=== PATIENT | female | born 1980 | race Caucasian/White ===

== ENCOUNTER → 2016-06-02 | Outpatient (CLI) | payer MEDICARE, MEDICAID ==
[~2016-06-02] MED LIST: ANAPROX DS550 MG PO; AYGESTIN5 MG PO; COMPAZINE10 MG PO; EC NAPROSYN500 MG PO
== END | disposition home or self-care (01) ==
LOC: CARD 10:30
DX: I34.0 Nonrheumatic mitral (valve) insufficiency (principal); I51.9 Heart disease, unspecified; I42.9 Cardiomyopathy, unspecified; I07.1 Rheumatic tricuspid insufficiency

== ENCOUNTER 2017-10-22 21:19 | Emergency (ER) | payer MEDICARE, MEDICAID ==
[~2017-10-22] VITALS: Ht 157.4 cm; Wt 47.6 kg
[2017-10-22] MEDS ORDERED: NAPROSYN500 MG PO (23:29)
== END 2017-10-22 23:32 | disposition home or self-care (01) ==
LOC: ED 21:19
DX: S29.011A Strain of muscle and tendon of front wall of thorax, initial encounter (principal); Z79.899 Other long term (current) drug therapy; W06.XXXA Fall from bed, initial encounter; Y93.89 Activity, other specified; Y92.89 Other specified places as the place of occurrence of the external cause; Y99.8 Other external cause status

== ENCOUNTER 2018-04-14 00:42 | Emergency (ER) | payer MEDICARE, MEDICAID ==
[~2018-04-14] VITALS: Ht 162.5 cm; Wt 47.6 kg
[~2018-04-14 00:42] MED LIST changes: +NAPROSYN500 MG PO
== END 2018-04-14 01:57 | disposition home or self-care (01) ==
LOC: ED 00:42
DX: G40.909 Epilepsy, unspecified, not intractable, without status epilepticus (principal); R07.81 Pleurodynia; Z79.899 Other long term (current) drug therapy

== ENCOUNTER → 2019-05-26 | Outpatient (CLI) | payer MEDICARE, MEDICAID | END | disposition home or self-care (01) | LOC: CARD 09:21 | DX: I08.1 Rheumatic disorders of both mitral and tricuspid valves (principal); I42.9 Cardiomyopathy, unspecified; Z79.899 Other long term (current) drug therapy ==

== ENCOUNTER 2020-03-15 18:07 | Emergency (ER) | payer MEDICARE, MEDICAID ==
[~2020-03-15] VITALS: Ht 162.5 cm; Wt 49.9 kg
[2020-03-15] MEDS ORDERED: IBUPROFEN600 MG PO (21:26)
== END 2020-03-15 21:36 | disposition home or self-care (01) ==
LOC: ED 18:07
DX: G89.29 Other chronic pain (principal); M79.671 Pain in right foot

== ENCOUNTER 2022-06-19 15:21 | Emergency (ER) | payer MEDICARE, MEDICAID ==
[~2022-06-19] VITALS: Ht 154.9 cm; Wt 48.1 kg
[~2022-06-19 15:21] MED LIST changes: +IBUPROFEN600 MG PO
[2022-06-19] MEDS ORDERED: Ondansetron4 MG PO (15:49)
[2022-06-19 16:01] LABS: HEMATOCRIT 35.5 % (37.0-47.0); MEAN CORPUSCULAR HGB 29.8 pg (27.0-31.0); MEAN CORPUSCULAR HGB CONC 32.4 g/dl (33.0-37.0); MEAN PLATELET VOLUME 8.7 fl (9.6-12.3); PLATELET COUNT AUTOMATED 156 10*3/uL (130-400); RED BLOOD COUNT 3.86 10*6/uL (4.10-5.10); RED CELL DISTRI WIDTH 12.7 % (0-14.5); WHITE BLOOD COUNT 5.2 10*3/uL (4.8-10.8)
[2022-06-19 16:17] LABS: MANUAL DIFF REFLEX YES
[2022-06-19 16:18] LABS: ALKALINE PHOSPHATASE 80 U/L (46-116); BUN 19 mg/dl (9-23); CHLORIDE 108 mmol/L (98-107); LIPASE 54 U/L (12-53); POTASSIUM 3.5 mmol/L (3.4-5.1); SGPT/ALT 32 U/L (10-49); TOTAL PROTEIN 6.1 gm/dL (6.0-8.0)
[2022-06-19 16:34] LABS: BURR CELLS FEW; OVALOCYTES FEW; PLATELET SUFFICIENCY NORMAL (NORMAL); TOTAL CELLS COUNTED 100 #CELLS
== END 2022-06-19 17:34 | disposition home or self-care (01) ==
LOC: ED 15:21
PROVIDERS: Emergency Medicine
DX: U07.1 COVID-19 (principal); R11.2 Nausea with vomiting, unspecified

== ENCOUNTER 2022-06-20 16:12 | Emergency (ER) | payer MEDICARE, MEDICAID ==
[~2022-06-20] VITALS: Ht 154.9 cm; Wt 59.0 kg
[~2022-06-20 16:12] MED LIST changes: +Ondansetron4 MG PO
[2022-06-20 17:09] LABS: BASO % 0.2 % (0.0-1.0); EOS % 0.8 % (1.0-4.0); HEMATOCRIT 37.8 % (37.0-47.0); LYMPH # 0.8 10*3/uL (1.3-4.4); LYMPH % 16.5 % (27.0-41.0); MEAN CELL VOLUME 91.1 fl (81.0-99.0); MEAN CORPUSCULAR HGB 30.1 pg (27.0-31.0); MEAN CORPUSCULAR HGB CONC 33.1 g/dl (33.0-37.0); MEAN PLATELET VOLUME 8.4 fl (9.6-12.3); MONO # 0.8 10*3/uL (0.1-1.0); MONO % 15.7 % (3.0-9.0); NEUT # 3.3 10*3/uL (2.3-7.9); NEUT % 66.2 % (47.0-73.0); PLATELET COUNT AUTOMATED 146 10*3/uL (130-400); RED BLOOD COUNT 4.15 10*6/uL (4.10-5.10); RED CELL DISTRI WIDTH 12.6 % (0-14.5)
[2022-06-20 17:24] LABS: POTASSIUM 3.5 mmol/L (3.4-5.1); TOTAL PROTEIN 6.1 gm/dL (6.0-8.0)
== END 2022-06-20 23:05 | disposition home or self-care (01) ==
LOC: ED 16:12
PROVIDERS: Physician Assistant
DX: R19.7 Diarrhea, unspecified (principal); R10.9 Unspecified abdominal pain; R11.2 Nausea with vomiting, unspecified

== ENCOUNTER 2024-11-22 11:33 | Inpatient (IN) | payer OTHER, MEDICAID ==
[~2024-11-22] VITALS: Ht 152.4 cm; Wt 45.5 kg
[~2024-11-22 11:33] MED LIST changes: +ALDACTONE25 MG PO; +APRESOLINE10 MG PO; +APTIOM400 MG PO; +APTIOM800 MG PO; +CITALOPRAM10 MG PO; +CLOBAZAM10 MG PO; +FEROSUL325 M1 PO; +GEMTESA75 MG PO; +GOOD NEIGHBOR L10 MG PO; +ISORDIL10 M1 PO; +JARDIANCE10 MG PO; +LEVETIRACETAM1000 M1 PO; +METOPROLOL SUCC25 M2 PO; +MONTELUKAST SOD10 MG PO; +MULTIVITAMIN1 EACH PO; +NATURE'S BLEND F1 MG PO; +PANTOPRAZOLE SO20 MG PO; +PROZAC20 MG PO; +RISPERDAL2 M1 PO; +VITAMIN D350 MC2 PO; +ZONISAMIDE100 MG PO
[2024-11-22 11:43] VITALS: BP 158/77
[2024-11-22] MEDS ORDERED: Promethazine Hydrochloride 25 MG/ML VIAL IV ONE (12:05)
[2024-11-22] MEDS ORDERED: SODIUM CHLORIDE 0.9% 1,000 ML IV ONE ×2 (12:05→18:00)
[2024-11-22] MEDS ORDERED: IOHEXOL 300 MG/ML 100 ML VIAL IV ONE (12:05)
[2024-11-22 12:28] LABS: BASO # 0.0 10*3/uL (0.0-0.1); BASO % 0.2 % (0.0-1.0); EOS # 0.0 10*3/uL (0.0-0.4); EOS % 0.0 % (1.0-4.0); MEAN CELL VOLUME 98.5 fl (81.0-99.0); MEAN CORPUSCULAR HGB 30.0 pg (27.0-31.0); MEAN PLATELET VOLUME 8.6 fl (9.6-12.3); MONO # 0.7 10*3/uL (0.1-1.0); MONO % 6.3 % (3.0-9.0); NEUT # 8.7 10*3/uL (2.3-7.9); NEUT % 83.4 % (47.0-73.0); NUCLEATED RED BLOOD CELL 0.0 % (0.0-0.0); NUCLEATED RED BLOOD CELL 0.0 10*3/uL (0.0-0.0); PLATELET COUNT AUTOMATED 167 10*3/uL (130-400); RED CELL DISTRI WIDTH 12.2 % (0-14.5)
[2024-11-22 12:31] LABS: BILIRUBIN Negative (Negative); BLOOD 3+ (Negative); CLARITY Clear (Clear); COLOR Red (Yellow); KETONE Negative (Negative); LEUKO ESTERASE Negative (Negative); NITRITE Negative (Negative); PH 7.5 (4.5-8.0); SPECIFIC GRAVITY 1.010 (1.001-1.030); UROBILINOGEN 0.2 E.U./dl (0.0-1.0)
[2024-11-22 12:40] LABS: BACTERIA 1+; RBC TNTC rbc/hpf (0-2)
[2024-11-22 12:52] LABS: BUN 40.0 mg/dl (9-23); SGPT/ALT 168.0 U/L (5-49)
[2024-11-22 16:04] VITALS: BP 140/94
[2024-11-22 17:39] LABS: URINE AMPHETAMINES Negative (1000ng/ml); URINE BARBITURATES Negative (200ng/ml); URINE BENZODIAZEPINES Positive (200ng/ml); URINE CANNABINOIDS (THC) Negative (50ng/ml); URINE COCAINE Negative (300ng/ml); URINE METHADONE Negative (300ng/ml); URINE OPIATES Negative (300ng/ml); URINE PHENCYCLIDINE Negative (25ng/ml)
[2024-11-22 17:52] VITALS: BP 166/97
[2024-11-22] MEDS ORDERED: SINCALIDE 5 MCG VIAL IV SCH (18:10)
[2024-11-22] MEDS ORDERED: Technetium Tc 99M Mebrofenin 1 KIT KIT IV SCH (18:10)
[2024-11-22] MEDS ORDERED: HYDROmorphONE Hydrochloride 0.5 MG/0.5 ML SYRINGE IV PRN (18:45)
[2024-11-22 20:00] VITALS: BP 134/87
[2024-11-22] MEDS ORDERED: Piperacillin Sodium/Tazobact 2.25 GM in SODIUM CHLORIDE 0.9% 50 ML IV SCH (20:00)
[2024-11-23] VITALS: BP 100/55
[2024-11-23 06:02] LABS: BUN 43.0 mg/dl (9-23); SGPT/ALT 123.0 U/L (5-49)
[2024-11-23 06:27] LABS: BASO # 0.0 10*3/uL (0.0-0.1); BASO % 0.2 % (0.0-1.0); EOS # 0.1 10*3/uL (0.0-0.4); EOS % 1.5 % (1.0-4.0); MEAN CELL VOLUME 98.2 fl (81.0-99.0); MEAN CORPUSCULAR HGB 30.6 pg (27.0-31.0); MEAN PLATELET VOLUME 9.4 fl (9.6-12.3); MONO # 0.6 10*3/uL (0.1-1.0); MONO % 7.8 % (3.0-9.0); NEUT # 5.8 10*3/uL (2.3-7.9); NEUT % 70.9 % (47.0-73.0); NUCLEATED RED BLOOD CELL 0.0 % (0.0-0.0); NUCLEATED RED BLOOD CELL 0.0 10*3/uL (0.0-0.0); PLATELET COUNT AUTOMATED 120 10*3/uL (130-400); RED CELL DISTRI WIDTH 12.7 % (0-14.5)
[2024-11-23 07:49] VITALS: BP 123/80
[2024-11-23] MEDS ORDERED: SODIUM CHLORIDE 0.9% 1,000 ML IV SCH (08:10)
[2024-11-23] MEDS ORDERED: CLOBAZAM 5 MG PO SCH (10:00)
[2024-11-23] MEDS ORDERED: Cholecalciferol 2,000 UNIT TABLET (50 MCG) PO SCH (10:00)
[2024-11-23] MEDS ORDERED: FOLIC ACID 1 MG TAB PO SCH (10:00)
[2024-11-23] MEDS ORDERED: LORATADINE 10 MG TAB PO SCH (10:00)
[2024-11-23] MEDS ORDERED: ISOSORBIDE DINITRATE 10 MG TAB PO SCH ×2 (10:00→22:00)
[2024-11-23] MEDS ORDERED: MULTIVITAMIN 1 TAB TAB PO SCH (10:00)
[2024-11-23] MEDS ORDERED: METOPROLOL SUCCINATE XR 25 MG TAB PO SCH (10:00)
[2024-11-23] MEDS ORDERED: FERROUS SULFATE 325 MG TAB PO SCH (10:00)
[2024-11-23] MEDS ORDERED: CITALOPRAM 20 MG TAB PO SCH (10:00)
[2024-11-23] MEDS ORDERED: Pantoprazole Sodium 20 MG TAB PO SCH (10:00)
[2024-11-23 10:30] VITALS: BP 154/85
[2024-11-23 12:13] LABS: BUN 46.0 mg/dl (9-23); CPK 209.0 U/L (34-171)
[2024-11-23] MEDS ORDERED: SODIUM CHLORIDE 0.45% 1,000 ML IV ONE (12:35)
[2024-11-23 15:58] VITALS: BP 152/69
[2024-11-23] MEDS ORDERED: HYDROmorphONE Hydrochloride 0.5 MG/0.5 ML SYRINGE IV PRN (16:45)
[2024-11-23] MEDS ORDERED: diphenhydrAMINE hydrochloride 25 MG CAP PO ONE (17:30)
[2024-11-23 20:00] VITALS: BP 110/71
[2024-11-23] MEDS ORDERED: MED. FROM HOME 1 EACH EA PO SCH ×5 (22:00)
[2024-11-23] MEDS ORDERED: [UNRECOGNIZED DRUG - OTHER] PO SCH (22:00)
[2024-11-23] MEDS ORDERED: ZONISAMIDE PO SCH (22:00)
[2024-11-24] VITALS: BP 117/61
[2024-11-24 05:53] LABS: BUN 45.0 mg/dl (9-23); SGPT/ALT 85.0 U/L (5-49)
[2024-11-24 06:07] LABS: BASO # 0.0 10*3/uL (0.0-0.1); BASO % 0.6 % (0.0-1.0); EOS # 0.3 10*3/uL (0.0-0.4); EOS % 4.8 % (1.0-4.0); MEAN CELL VOLUME 98.5 fl (81.0-99.0); MEAN CORPUSCULAR HGB 30.0 pg (27.0-31.0); MEAN PLATELET VOLUME 9.5 fl (9.6-12.3); MONO # 0.5 10*3/uL (0.1-1.0); MONO % 7.6 % (3.0-9.0); NEUT # 3.7 10*3/uL (2.3-7.9); NEUT % 58.4 % (47.0-73.0); NUCLEATED RED BLOOD CELL 0.0 % (0.0-0.0); NUCLEATED RED BLOOD CELL 0.0 10*3/uL (0.0-0.0); RED CELL DISTRI WIDTH 12.4 % (0-14.5)
[2024-11-24] MEDS ORDERED: SINCALIDE 0.9 MCG in SODIUM CHLORIDE 0.9% 50 ML IV STA (06:58)
[2024-11-24 07:10] LABS: PLATELET COUNT AUTOMATED 82 10*3/uL (130-400)
[2024-11-24] MEDS ORDERED: SINCALIDE 5 MCG VIAL IV SCH (07:20)
[2024-11-24] MEDS ORDERED: Technetium Tc 99M Mebrofenin 1 KIT KIT IV SCH (07:20)
[2024-11-24 08:00] VITALS: BP 137/54
[2024-11-24 12:00] VITALS: BP 134/56
== END 2024-11-24 16:51 | disposition home or self-care (01) | DRG 444 ==
LOC: ED 11:33 → EDHOLD 16:43 → 4E 16:43
PROVIDERS: Nurse Practitioner Family; ADMIT Student in an Organized Health Care Education/Training Program; ATTEND Student in an Organized Health Care Education/Training Program
DX: K81.0 Acute cholecystitis (principal); N17.0 Acute kidney failure with tubular necrosis; G40.812 Lennox-Gastaut syndrome, not intractable, without status epilepticus; D64.9 Anemia, unspecified; I12.9 Hypertensive chronic kidney disease with stage 1 through stage 4 chronic kidney disease, or unspecified chronic kidney disease; N18.9 Chronic kidney disease, unspecified; K21.9 Gastro-esophageal reflux disease without esophagitis; Z79.899 Other long term (current) drug therapy

== ENCOUNTER → 2025-02-04 | Outpatient (CLI) | payer OTHER, MEDICAID | END | disposition home or self-care (01) | LOC: RAD 17:01 | DX: M25.521 Pain in right elbow (principal) ==

== ENCOUNTER 2025-03-31 22:55 | Emergency (ER) | payer OTHER, MEDICAID ==
[~2025-03-31] VITALS: Ht 154.9 cm; Wt 51.5 kg
[2025-04-01] MEDS ORDERED: NAPROXEN250 MG PO (01:51)
== END 2025-04-01 02:01 | disposition home or self-care (01) ==
LOC: ED 22:55
DX: R07.81 Pleurodynia (principal); I11.0 Hypertensive heart disease with heart failure; I50.9 Heart failure, unspecified